=== PATIENT | female | born 1950 | race Caucasian/White ===

== ENCOUNTER 2023-02-25 14:43 | Outpatient (AMB) | payer OTHER, SELFPAY ==
--- NOTE | 2023-02-25 15:06 | MHC.OFFVIS ---
Intake Vital Signs 02/25/23 15:14 Height 5 ft 2 in Weight 176 lb BMI 32.2 Intake Visit Reasons: Tarper- Left CTS Intake Note: Yaritza 72 yr old right hand dominant woman presents today as a new patient for an evaluation for her left hand numbness and tingling. States she has numbness that has worsen for the last 10 yrs. States her numbness increases at night time and intermittent during the day. Seen at [facility] where an EMG was done. Patient would like to discuss injection.Patient states she is also starting to experience numbness in her right hand. Also having pain in her left shoulder. Allergies No Known Allergies Allergy (Verified 02/25/23 15:13) HPI Tarper- Left CTS HPI Details Yaritza is a 72 year old right hand dominant woman who presents for a NCS review of her left hand numbness. She complains of numbness to all digits of her left hand. Symptoms intermittent, but daily, worse at night. She says she has a painful burning sensation in her left hand at night, which would wake her up. Her PCP prescribed Gabapentin which helps her pain somewhat. She also has a mass on her left wrist, which has been present for some time. She says she has some occasional numbness in her right hand. 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 [facility] Medical History (Updated 02/25/23 @ 15:55 by Tanmay Crenshaw) CTS (carpal tunnel syndrome) Social History (Updated 02/25/23 @ 15:14 by Dorothy Knott [facility]) Current occupational status: disabled Current occupation: rt hand Review of Systems Const All systems reviewed & are unremarkable except as noted in HPI and below Physical Exam Vital Signs: BMI result Body Mass Index 32.2 Const General: cooperative, healthy appearing and no acute distress Orientation/consciousness: patient oriented x3 HEENT Head: Yes normocephalic and Yes atraumatic Eyes EOM: EOMs intact bilaterally Resp Effort & Inspection: normal respiratory effort and able to speak in complete sentences Cardio Jugular venous distension: no JVD Skin General skin exam: turgor normal Rashes: no rashes Neuro General: patient oriented x3 Extrem Other: Evaluation of Left Upper Extremity: The patient is alert, oriented, and in no acute distress Neuro: Not normal sensation in the median nerve distribution of the left hand. More normal sensation to the small finger No thenar or intrinsic wasting Good APB muscle belly firing and good finger cross Vascular: Cap refill brisk ROM: She can make a fist and extend all her digits Skin: No lacerations or abrasions. General: No Ecchymosis. No Erythema or evidence of infection. She has a left volar wrist ganglion, measuring ~5mm in diameter, directly over the FCR tendon at distal wrist crease Nerve Conduction Study: Impression: Mild left carpal tunnel syndrome No evidence of cervical radiculopathy Dr. Lizama 01/07/22 Psych Appearance: grossly normal Affect: normal affect Attitude: cooperative Assessment & Plan Assessment & Plan (1) Carpal tunnel syndrome of left wrist: Code(s): G56.02 - Carpal tunnel syndrome, left upper limb (2) Mass of left wrist: Code(s): R22.32 - Localized swelling, mass and lump, left upper limb Plan Assessment & Plan: 1. Left Carpal tunnel syndrome, mild Symptoms intermittent, but daily, worse at night I educated her about this condition I discussed operative and non-operative treatment options The patient would like to proceed with surgery The risks and benefits of operative treatment were discussed with the patient and the patient wishes to proceed with surgery. These risks include, but are not limited to risk of damage to blood vessels, nerves, tendons, infection, recurrence, incomplete relief of preoperative symptoms, persistent pain, possible need for further surgery and the risks associated with regional blocks and anesthesia. The plan is to take the patient to the operating room sometime in the next few weeks for the following procedures: 1. Left Carpal tunnel release, under local All of the preoperative paperwork including the consent was filled out today. All the patient's questions were answered. The patient understands that they will be contacted by our dobie worker soon to schedule this procedure She denies Diabetes, blood thinners, asthma, heart, lung, kidney issues 2. Left volar wrist ganglion measuring ~5mm in diameter, directly over the FCR tendon at distal wrist crease Not particularly bothersome No intervention warranted at this time Of note, this 1 is distal enough that if it continued to bother her we might try aspiration in clinic. Scribed for Pauline Clay MD by Tanmay Crenshaw [employer] medical sergeant, on 02/25/23 at 3:45 PM, EST. Coding Level of Care Code New Pt Level 4 (48120) Diagnoses Carpal tunnel syndrome of left wrist G56.02 Mass of left wrist R22.32
[2023-02-25 15:14] VITALS: BMI 32.2
== END 2023-02-25 16:05 | disposition home or self-care (01) ==
PROVIDERS: Visit Provider Orthopaedic Surgery
DX: G56.02 Carpal tunnel syndrome, left upper limb (principal); R22.32 Localized swelling, mass and lump, left upper limb; M67.432 Ganglion, left wrist
CPT/HCPCS: 99204

== ENCOUNTER → 2023-02-25 14:43 | Outpatient (BNVA) | payer OTHER, SELFPAY | PROVIDERS: Visit Provider Orthopaedic Surgery | DX: G56.02 Carpal tunnel syndrome, left upper limb (principal); R22.32 Localized swelling, mass and lump, left upper limb | CPT/HCPCS: 99202 ==